=== PATIENT | male | born 1995 | race Caucasian/White ===

== ENCOUNTER 2017-01-10 11:15 | Emergency (ER) | payer OTHER ==
[~2017-01-10] VITALS: Ht 182.9 cm; Wt 90.7 kg
[2017-01-10] MEDS ORDERED: KETOROLAC 30 MG/ML VIAL (J1885) IV ONE (12:00)
--- NOTE | 2017-01-10 13:10 | REP ---
Clinical: Chest pain . Comparison: None . Technique: PA and lateral. Findings: The mediastinum and cardiac silhouette are normal. The lung stein are clear and without acute consolidation, effusion, or pneumothorax. The skeletal structures are intact and normal. Impression: 1. No acute cardiopulmonary process. Signed by Bandar Ball MD 01/10/2017 01:00 P
[2017-01-10] MEDS ORDERED: NAPR500T PO (13:11)
[2017-01-10 13:38] VITALS: BP 125/78
--- NOTE | 2017-01-10 15:03 | ECGEPIP ---
Stationary ECG Study [facility] - ED Test Date: 2017-01-10 Pat Name: GERALD COURTNEY Department: Room: - Gender: M Roll Tester: suzanna : [id number] Requested By: Valentine Morales Order Number: [id number] Reading MD: Elian Hu Measurements Intervals [place] Rate: 66 P: 41 IA: 157 QRS: 55 QRSD: 98 T: 5 QT: 366 QTc: 384 Interpretive Statements SINUS RHYTHM EARLY REPOLARIZATION NO PRIORS Electronically Signed On 01-10-2017 15:02:58 EDT by Elian Hu
== END 2017-01-10 13:39 | disposition home or self-care (01) ==
LOC: M ED 12:13
DX: R07.9 Chest pain, unspecified (principal); G89.29 Other chronic pain; M54.9 Dorsalgia, unspecified; F17.200 Nicotine dependence, unspecified, uncomplicated
CPT/HCPCS: 36415; 71020; 85379; 93005; 96374; 99284; J1885

== ENCOUNTER 2017-10-02 06:16 | Emergency (ER) | payer OTHER | END 2017-10-02 07:10 | disposition home or self-care (01) | LOC: M ED 06:16 | DX: S60.221A Contusion of right hand, initial encounter (principal); S62.231A Other displaced fracture of base of first metacarpal bone, right hand, initial encounter for closed fracture; Y04.2XXA Assault by strike against or bumped into by another person, initial encounter; Y92.410 Unspecified street and highway as the place of occurrence of the external cause; Y93.9 Activity, unspecified | CPT/HCPCS: 73130 ==

== ENCOUNTER 2017-10-02 15:39 | Emergency (ER) | payer OTHER | END 2017-10-02 16:41 | disposition home or self-care (01) | LOC: M ED 15:39 | DX: T76.21XA Adult sexual abuse, suspected, initial encounter (principal); Y92.099 Unspecified place in other non-institutional residence as the place of occurrence of the external cause; Y93.9 Activity, unspecified; F17.200 Nicotine dependence, unspecified, uncomplicated | CPT/HCPCS: 99282 ==